=== PATIENT | male | born 1990 | race Caucasian/White ===

== ENCOUNTER 2017-12-03 17:11 | Emergency (ER) | payer OTHER ==
[~2017-12-03] VITALS: Ht 180.3 cm; Wt 72.6 kg
[2017-12-03] MEDS ORDERED: Naprosyn500 MG PO (18:07)
== END 2017-12-03 18:21 | disposition home or self-care (01) ==
LOC: ER 17:11
DX: M67.441 Ganglion, right hand (principal); F17.200 Nicotine dependence, unspecified, uncomplicated
CPT/HCPCS: 99282